=== PATIENT | male | born 1990 | race Caucasian/White ===

== ENCOUNTER 2019-03-23 04:01 | Emergency (ER) | payer OTHER ==
[~2019-03-23] VITALS: Ht 172.7 cm; Wt 86.2 kg
[2019-03-23] MEDS ORDERED: DEPAKOTE250 MG PO (04:20)
[2019-03-23] MEDS ORDERED: EFFEXOR XR150 MG PO (04:20)
[2019-03-23 05:30] VITALS: BP 128/80
== END 2019-03-23 05:30 | disposition home or self-care (01) ==
LOC: ER 04:01
DX: S01.511A Laceration without foreign body of lip, initial encounter (principal); S10.91XA Abrasion of unspecified part of neck, initial encounter; F17.220 Nicotine dependence, chewing tobacco, uncomplicated; Z79.899 Other long term (current) drug therapy; Z88.8 Allergy status to other drugs, medicaments and biological substances; Y04.2XXA Assault by strike against or bumped into by another person, initial encounter; Y93.89 Activity, other specified; Y92.098 Other place in other non-institutional residence as the place of occurrence of the external cause; Y99.8 Other external cause status